=== PATIENT | female | born 1935 | race Caucasian/White ===

== ENCOUNTER 2018-12-16 12:29 | Day surgery (SDC) | payer MEDICARE ==
[2018-12-16] VITALS (8 sets, daily range): BP systolic 120–157; BP diastolic 51–77
[~2018-12-16] VITALS: Ht 144.8 cm; Wt 73.3 kg
[2018-12-16] MEDS ORDERED: normal saline 1,000 ML IV SCH (12:50)
[2018-12-16] MEDS ORDERED: diphenhydrAMINE 25mg capsule PO PRN (12:50)
[2018-12-16] MEDS ORDERED: midazolam 2 mg/2 ml injection ONE (13:03)
[2018-12-16] MEDS ORDERED: iohexol 350 MG/ML 50ML vial IV ONE (13:04)
[2018-12-16] MEDS ORDERED: fentaNYL/PF 50MCG/1 ML 2ML syringe ONE (13:04)
[2018-12-16] MEDS ORDERED: iohexol 350MG/ML 100ml bottle IV ONE (13:04)
[2018-12-16] MEDS ORDERED: LIDOcaine 1% (10mg/ml)w/preservative injection 20ml MDV ONE (13:04)
[2018-12-16 13:11] LABS: BASOPHILS % (AUTO) 0.6 % (0-1); EOSINOPHILS # (AUTO) 0.2 X10'3 (0-0.9); EOSINOPHILS % (AUTO) 3.1 % (0-6); HEMATOCRIT 39.3 % (35.0-45.0); HEMOGLOBIN 13.2 g/dl (12.0-16.0); LYMPHOCYTES # (AUTO) 1.5 X10'3 (1.1-4.8); LYMPHOCYTES % (AUTO) 27.6 % (21-51); MEAN CORPUSCULAR HEMOGLOBIN 31.5 PG (27.0-31.0); MEAN CORPUSCULAR HGB CONC 33.7 g/dL (33.0-36.5); MEAN CORPUSCULAR VOLUME 93.4 FL (78-98); MEAN PLATELET VOLUME 7.7 FL (7.4-10.4); MONOCYTES # (AUTO) 0.5 X10'3 (0-0.9); MONOCYTES % (AUTO) 8.9 % (2-12); NEUTROPHILS # (AUTO) 3.2 X10'3 (1.8-7.7); NEUTROPHILS % (AUTO) 59.8 % (42-75); PLATELET COUNT 231 X10'3 (140-440); RED CELL DISTRIBUTION WIDTH 13.6 % (11.5-14.5); WHITE BLOOD COUNT 5.3 X10'3 (4.5-11.0)
[2018-12-16] MEDS ORDERED: IRBE300T19 PO (13:22)
[2018-12-16] MEDS ORDERED: ASPI-611 PO (13:22)
[2018-12-16] MEDS ORDERED: ZINC50TA4 PO (13:22)
[2018-12-16] MEDS ORDERED: LIRA0.6P SQ (13:22)
[2018-12-16] MEDS ORDERED: LEVO112T52 PO (13:22)
[2018-12-16] MEDS ORDERED: FISH1CAP15 PO (13:22)
[2018-12-16] MEDS ORDERED: GUAI-652 PO (13:22)
[2018-12-16] MEDS ORDERED: ATOR20TA PO (13:22)
[2018-12-16] MEDS ORDERED: FOLI0.4T2 PO (13:22)
[2018-12-16] MEDS ORDERED: AMLO10TA PO (13:22)
[2018-12-16] MEDS ORDERED: B CO1TAB7 PO (13:22)
[2018-12-16] MEDS ORDERED: ESTR0.5T PO (13:22)
[2018-12-16] MEDS ORDERED: LACT1CAP57 PO (13:22)
[2018-12-16] MEDS ORDERED: MELA3TAB64 PO (13:22)
[2018-12-16] MEDS ORDERED: NIA500ERT PO (13:22)
[2018-12-16] MEDS ORDERED: CINN500C15 PO (13:22)
[2018-12-16] MEDS ORDERED: FLAX100031 PO (13:22)
[2018-12-16] MEDS ORDERED: MECL-111 PO (13:22)
[2018-12-16] MEDS ORDERED: HYDR12.5 PO (13:22)
[2018-12-16] MEDS ORDERED: DOCU-261 PO (13:22)
[2018-12-16] MEDS ORDERED: CHOL10002 PO (13:22)
[2018-12-16] MEDS ORDERED: METF-436 PO (13:22)
[2018-12-16] MEDS ORDERED: CYAN500T63 PO (13:22)
[2018-12-16] MEDS ORDERED: NAPR220T67 PO (13:22)
[2018-12-16] MEDS ORDERED: METO-539 PO (13:22)
[2018-12-16 13:32] LABS: ALBUMIN 4.1 G/DL (3.4-5.0); ANION GAP 9 (8-16); BLOOD UREA NITROGEN 17 MG/DL (7-18); BUN/CREATININE RATIO 18.7 (6.6-38.0); CALCIUM 8.9 MG/DL (8.5-10.1); CHLORIDE 98 MMOL/L (99-107); CREATININE 0.91 MG/DL (0.40-0.90); GLUCOSE 110 MG/DL (70-104); MAGNESIUM 1.7 MG/DL (1.5-2.4); POTASSIUM 4.8 MMOL/L (3.5-5.1); SODIUM 132 MMOL/L (135-145); TOTAL CARBON DIOXIDE 25.2 MMOL/L (24-32); eGFR 59 ML/MIN
[2018-12-16] MEDS ORDERED: HYDROcodone/acetaminophen 5mg/325mg tablet PO PRN (14:45)
[2018-12-16] MEDS ORDERED: normal saline 1000ml 1,000 ML IV SCH (14:45)
[2018-12-16] MEDS ORDERED: ondansetron/PF 4mg/2ml inj IV PRN (14:45)
[2018-12-16] MEDS ORDERED: HYDROcodone/acetaminophen 10/325mg tab PO PRN (14:50)
[2018-12-16] MEDS ORDERED: OXAZEpam 15mg capsule PO PRN (14:50)
[2018-12-16] MEDS ORDERED: proCHLORperazine 10 MG/2 ml inj IV PRN (14:50)
== END 2018-12-16 17:30 | disposition home or self-care (01) ==
LOC: SSTAY O 12:29
PROVIDERS: ATTEND Internal Medicine Cardiovascular Disease
DX: R94.39 Abnormal result of other cardiovascular function study (principal); I10 Essential (primary) hypertension; E78.5 Hyperlipidemia, unspecified; Z79.899 Other long term (current) drug therapy; Z79.01 Long term (current) use of anticoagulants
CPT/HCPCS: 36415; 80048; 82948; 83735; 85025; 85610; 93005; 93458; 99152; C1769; C1894; J1644; J2001; J2250; J3010; J7030; Q9967; A4620; A6258; C1760

== ENCOUNTER 2021-03-07 10:14 | Outpatient (CLI) | payer MEDICARE ==
[~2021-03-07 10:14] MED LIST: AMLO10TA PO; ASPI-611 PO; ATOR20TA PO; B CO1TAB7 PO; CHOL10002 PO; CINN500C15 PO; CYAN500T71 PO; DOCU-337 PO; ESTR0.5T PO; FISH1CAP15 PO; FLAX100031 PO; FOLI0.4T6 PO; GUAI-652 PO; HYDR12.5 PO; IRBE300T18 PO; LACT1CAP57 PO; LEVO112T52 PO; LIRA0.6P SQ; MECL-159 PO; MELA3TAB39 PO; METF-436 PO; METO-539 PO; NAPR220T67 PO; NIA500ERT PO; ZINC50TA15 PO
== END 2021-03-07 23:59 | disposition home or self-care (01) ==
LOC: RAD 10:14
PROVIDERS: ATTEND Psychiatry & Neurology Neurology
DX: R94.01 Abnormal electroencephalogram [EEG] (principal)
CPT/HCPCS: 95816

== ENCOUNTER 2021-10-04 12:08 | Outpatient (CLI) | payer MEDICARE | END 2021-10-04 23:59 | disposition home or self-care (01) | LOC: RAD 12:08 | PROVIDERS: ATTEND Psychiatry & Neurology Neurology | DX: R94.01 Abnormal electroencephalogram [EEG] (principal); R40.4 Transient alteration of awareness | CPT/HCPCS: 95816 ==

== ENCOUNTER 2024-12-25 11:55 | Outpatient (CLI) | payer MEDICARE ==
[~2024-12-25 11:55] MED LIST changes: -ESTR0.5T PO; +ESTR0.5T36 PO; -IRBE300T18 PO; +IRBE300T26 PO; -MECL-159 PO; +MECL-302 PO; -ZINC50TA15 PO; +ZINC50TA80 PO
--- NOTE | 2024-12-25 13:36 | VASCULAR REPORT ---
Carotid Duplex Date: 12/25/2024 12:17 PM Clinical History: Suspect carotid artery stenosis Comparison: None Technique: Duplex Doppler evaluation of the extracranial carotid and vertebral arteries including color Doppler and spectral/pulsed waveform analysis was performed. Findings: Left pCCA 74/18 cm/s pCCA 70/16 cm/s dCCA 62/8 cm/s dCCA 62/12 cm/s ECA 133/ cm/s 209/48 cm/s ECA 142/ cm/s pICA Merry 120/28 cm/s pICA 108/27 cm/s Merry 84/16 cm/s dICA 77/20 cm/s dICA 53/16 cm/s Vert. 57/12 cm/s Vert. 52/8 cm/s Subcl 131/ cm/s Subcl. 131/ cm/s ICA/CCA 3.40 ICA/CCA 1.70 CONCLUSION 50-69% stenosis to Right Internal Carotid Artery <50% stenosis visualized in the bilateral Common Carotid Arteries, Left Internal Carotid Artery, and bilateral External Carotid Arteries. Antegrade flow visualized in Vertebral Arteries bilaterally. Multiphasic Subclavian Arteries bilaterally. Shadowing plaque limits visibility bilaterally. Signed by Electronically Approved:
== END 2024-12-26 23:59 | disposition home or self-care (01) ==
LOC: VAS 11:55
PROVIDERS: ATTEND Internal Medicine Cardiovascular Disease
DX: I65.23 Occlusion and stenosis of bilateral carotid arteries (principal)
CPT/HCPCS: 93880